=== PATIENT | male | born 1965 | race Caucasian/White ===

== ENCOUNTER 2018-12-05 13:01 | Emergency (ER) | payer OTHER ==
[2018-12-05 13:37] LABS: Absolute Lymphocytes (CBC) 2.3 K/uL (0.7-4.9); Basophils % 0.9 % (0-1.3); Lymphocytes % 32.4 % (15.3-44.8)
[2018-12-05] MEDS ORDERED: KETOROLAC 30 MG/ML INJ ONE (13:49)
[2018-12-05] MEDS ORDERED: ONDANSETRON 4 MG/2 ML VIAL ONE (13:49)
[2018-12-05] MEDS ORDERED: NA CHLORIDE 0.9% 1,000 ML ONE (13:49)
[2018-12-05 13:54] LABS: Albumin 3.9 g/dL (3.4-5.0); Bilirubin Direct 0.1 mg/dL (0-0.2); Bilirubin Total 0.5 mg/dL (0.2-1.0); Potassium 3.7 mmol/L (3.5-5.1); Protein, Total 7.5 g/dL (6.4-8.2)
[2018-12-05] MEDS ORDERED: MORPHINE 4 MG/ML SYR ONE (14:20)
--- NOTE | 2018-12-05 14:22 | RAD REPORT ---
EXAM DESCRIPTION: CT - Stone Protocol - 12/05/2018 1:56 pm CLINICAL HISTORY: Abdominal pain. Left flank pain COMPARISON: 2009 TECHNIQUE: Computed axial tomography of the abdomen pelvis was obtained without oral or IV contrast. Lack of IV and oral contrast limits evaluation of solid organs, bowel, and vessels. Coronal reformat luciana images were obtained and reviewed. All CT scans are performed using dose optimization technique as appropriate and may include automated exposure control or mA/KV adjustment according to patient size. FINDINGS: A renal calculus is not seen. An ureteral calculus is not noted. A bladder calculus is not present. The liver, spleen, pancreas and adrenals appear grossly normal There is no evidence of diverticulitis. Small inguinal hernias contain fat Small umbilical hernia contains fat IMPRESSION: Negative for a genitourinary calculus
--- NOTE | 2018-12-05 15:20 | ER ---
Nurse's Notes [facility] Name: Zuhair Fish Age: 53 yrs Sex: Male : 1965 Arrival Date: 12/05/2018 Time: 13:03 Bed 23 Private MD: Diagnosis: Low back pain Presentation: 12/05 13:04 Presenting complaint: Patient states: Friday he started having left flank pain on aj1 , the pain has gotten worse since then. Patient reports that he has had a kidney stone previously and it felt the same. Transition of care: patient was not received from another setting of care. Onset of symptoms was November 2018. Risk Assessment: Do you want to hurt yourself or someone else? Patient reports no desire to harm self or others. Initial Sepsis Screen: Does the patient meet any 2 criteria? No. Patient's initial sepsis screen is negative. Does the patient have a suspected source of infection? No. Patient's initial sepsis screen is negative. Care prior to arrival: None. 13:04 Method Of Arrival: Ambulatory aj1 13:04 Acuity: PAULETTE 3 aj1 Triage Assessment: 13:06 General: Appears uncomfortable, Behavior is calm, cooperative, appropriate for age. aj1 Pain: Complains of pain in posterior aspect of left lateral abdomen Pain currently is 5 out of 10 on a pain scale. at worst was 8 out of 10 on a pain scale. Neuro: Level of Consciousness is awake, alert, obeys commands, Oriented to person, place, time, situation. Cardiovascular: Patient's skin is warm and dry. Respiratory: Airway is patent Respiratory effort is even, unlabored, Respiratory pattern is regular, symmetrical. GI: Patient currently denies diarrhea, nausea, vomiting. : Denies burning with urination, urinary frequency. Historical: - Allergies: 13:06 No Known Allergies; aj1 - Home Meds: 13:06 None [Active]; aj1 - PMHx: 13:06 None; aj1 - PSHx: 13:06 None; aj1 - Immunization history:: Flu vaccine is up to date. - Social history:: Smoking status: Patient/guardian denies using tobacco. - Ebola Screening: : Patient denies travel to an Ebola-affected area in the 21 days before illness onset. Screenin:41 Abuse screen: Denies injuries from another. Nutritional screening: No deficits noted. la1 Tuberculosis screening: No symptoms or risk factors identified. Fall Risk None identified. Assessment: 13:42 General: Appears uncomfortable, Behavior is calm, cooperative. Pain: Complains of pain la1 in abdomen and posterior aspect of left lateral abdomen. Neuro: Level of Consciousness is awake, alert, obeys commands, Oriented to person, place, time, situation. Cardiovascular: Capillary refill < 3 seconds Patient's skin is warm and dry. Respiratory: Airway is patent Respiratory effort is even, unlabored, Respiratory pattern is regular, symmetrical. GI: Abdomen is round non-distended, Bowel sounds present X 4 quads. Abd is soft and non tender X 4 quads. : No deficits noted. No signs and/or symptoms were reported regarding the genitourinary system. Vital Signs: 13:06 BP 142 / 78; Pulse 84; Resp 18; Temp 98.0; Pulse Ox 98% on R/A; Weight 115.67 kg (R); aj1 Height 6 ft. 0 in. (182.88 cm) (R); Pain 5/10; 14:14 BP 131 / 74; Pulse 73; Resp 16; Pulse Ox 98% on R/A; la1 15:19 BP 118 / 74; Pulse 84; Resp 16; Pulse Ox 98% on R/A; la1 13:06 Body Mass Index 34.58 (115.67 kg, 182.88 cm) aj1 ED Course: 13:03 Patient arrived in ED. as 13:05 Triage completed. aj1 13:06 Arm band placed on Patient placed in an exam room. aj1 13:08 Stefano Mcnair PA is PHCP. cp 13:08 Stefano Sibley MD is Attending Physician. cp 13:41 Osei Garces, EVELIA is Primary Nurse. la1 13:41 No provider procedures requiring assistance completed. Inserted saline lock: 22 gauge la1 in right hand, using aseptic technique. 13:42 Bed in low position. Call light in reach. la1 13:56 CT completed. Patient tolerated procedure well. Patient moved back from CT. mw3 13:57 CT Stone Protocol In Process Unspecified. EDMS Administered Medications: 13:43 Drug: TORadol - Ketorolac 15 mg Route: IVP; Site: right hand; la1 15:20 Follow up: Response: No adverse reaction la1 13:43 Drug: Zofran 4 mg Route: IVP; Site: right hand; la1 15:20 Follow up: Response: No adverse reaction la1 13:43 Drug: NS 0.9% 1000 ml Route: IV; Rate: 1000 ml/hr; Site: right hand; la1 15:20 Follow up: IV Status: Completed infusion la1 14:04 Drug: morphine 4 mg Route: IVP; Site: right hand; la1 15:20 Follow up: Response: No adverse reaction; Pain is decreased la1 Outcome: 15:18 Discharge ordered by . cp 15:27 Patient left the ED. la1 15:28 Discharged to home ambulatory, via ambulance, via wheelchair. la1 15:28 Condition: stable 15:28 Discharge instructions given to patient, Instructed on discharge instructions, follow up and referral plans. medication usage, Demonstrated understanding of instructions, follow-up care, medications, Prescriptions given X 3. Signatures: Dispatcher [employer] EDMS Erin Singh RN RN [email or web address] Balbina Gardner Lee, RN RN la1 Stefano Mcnair PA PA Linad Murphy [email or web address]
--- NOTE | 2018-12-05 15:21 | EDPHYS ---
Physician Documentation [facility] Name: Zuhair Fish Age: 53 yrs Sex: Male : 1965 Arrival Date: 12/05/2018 Time: 13:03 Bed 23 Private MD: ED Physician Stefano Sibley HPI: 12/05 13:25 This 53 yrs old Male presents to ER via Ambulatory with complaints of cp Possible Kidney Stone. 13:25 The patient complains of pain in the left subscapular area and left mid back. cp 13:25 The pain does not radiate. Onset: The symptoms/episode began/occurred 2 day(s) ago, and cp became worse yesterday. 13:25 Associated signs and symptoms: Pertinent negatives: diarrhea, dysuria, fever, pain cp radiating to the lower extremities, vomiting, testicular pain. Historical: - Allergies: 13:06 No Known Allergies; aj1 - Home Meds: 13:06 None [Active]; aj1 - PMHx: 13:06 None; aj1 - PSHx: 13:06 None; aj1 - Immunization history:: Flu vaccine is up to date. - Social history:: Smoking status: Patient/guardian denies using tobacco. - Ebola Screening: : Patient denies travel to an Ebola-affected area in the 21 days before illness onset. ROS: 13:40 Constitutional: Negative for body aches, chills, fever, poor PO intake. cp 13:40 Eyes: Negative for injury, pain, redness, and discharge. cp 13:40 ENT: Negative for drainage from ear(s), ear pain, sore throat, difficulty swallowing, difficulty handling secretions. 13:40 Cardiovascular: Negative for chest pain, edema, palpitations. 13:40 Respiratory: Negative for cough, shortness of breath, wheezing. 13:40 Abdomen/GI: Negative for nausea, vomiting, and diarrhea, constipation, black/tarry stool, rectal bleeding. 13:40 Back: Positive for flank pain, on the left, Negative for injury or acute deformity. 13:40 : Negative for urinary symptoms, testicular pain 13:40 Skin: Negative for rash. 13:40 Neuro: Negative for altered mental status, headache, weakness. 13:40 All other systems are negative. Exam: 13:45 Constitutional: The patient appears in no acute distress, alert, awake, non-toxic, well cp developed, well nourished. 13:45 Head/Face: Normocephalic, atraumatic. cp 13:45 Eyes: Periorbital structures: appear normal, Conjunctiva: normal, no exudate, no injection, Sclera: no appreciated abnormality, Lids and lashes: appear normal, bilaterally. 13:45 ENT: External ear(s): are unremarkable, Nose: is normal, Mouth: Lips: moist, Oral mucosa: pink and intact, moist, Posterior pharynx: is normal, airway is patent, no erythema, no exudate. 13:45 Neck: ROM/movement: is normal, is supple, without pain, no range of motions limitations, no nuchal rigidity. 13:45 Chest/axilla: Inspection: normal, Palpation: is normal, no crepitus, no tenderness. 13:45 Cardiovascular: Rate: normal, Rhythm: regular. 13:45 Respiratory: the patient does not display signs of respiratory distress, Respirations: normal, no use of accessory muscles, no retractions, no splinting, no tachypnea, labored breathing, is not present. 13:45 Abdomen/GI: Inspection: abdomen appears normal, Palpation: abdomen is soft and non-tender, in all quadrants, rebound tenderness, is not appreciated, voluntary guarding, is not appreciated, involuntary guarding, is not appreciated. 13:45 Back: pain, that is moderate, of the left subscapular area and left mid back, ROM is painful, with rotation to the right, vertebral tenderness, is not appreciated. 13:45 Skin: no rash present. 13:45 Neuro: Motor: moves all fours, strength is normal, Gait: is steady, Deep tendon reflexes are 2+ (normal) in the right patellar, right Achilles, left patellar and left Achilles. Vital Signs: 13:06 BP 142 / 78; Pulse 84; Resp 18; Temp 98.0; Pulse Ox 98% on R/A; Weight 115.67 kg (R); aj1 Height 6 ft. 0 in. (182.88 cm) (R); Pain 5/10; 14:14 BP 131 / 74; Pulse 73; Resp 16; Pulse Ox 98% on R/A; la1 15:19 BP 118 / 74; Pulse 84; Resp 16; Pulse Ox 98% on R/A; la1 13:06 Body Mass Index 34.58 (115.67 kg, 182.88 cm) aj1 MDM: 13:10 Patient medically screened. cp 14:00 Differential diagnosis: nephrolithiasis, pyelonephritis, UTI, testicular torsion. 12/05 13:19 Order name: Basic Metabolic Panel; Complete Time: 14:00 12/05 14:00 Interpretation: Normal except: CL 108; GLUC 117; GFR 69. 12/05 13:19 Order name: CBC with Diff; Complete Time: 14:00 12/05 14:31 Interpretation: Normal except: RBC 4.30. 12/05 13:19 Order name: Creatinine for Radiology; Complete Time: 14:00 12/05 13:19 Order name: Hepatic Function; Complete Time: 14:00 12/05 13:19 Order name: Lipase; Complete Time: 14:00 12/05 15:03 Order name: Urine Dipstick--Ancillary (enter results) aa5 12/05 13:19 Order name: IV Saline Lock; Complete Time: 13:42 12/05 13:19 Order name: Labs collected and sent; Complete Time: 13:42 cp 12/05 13:19 Order name: CT Stone Protocol; Complete Time: 14:31 12/05 14:33 Interpretation: Report reviewed. 12/05 15:02 Order name: Urine Dipstick-Ancillary (obtain specimen); Complete Time: 15:04 aa5 Administered Medications: 13:43 Drug: TORadol - Ketorolac 15 mg Route: IVP; Site: right hand; la1 15:20 Follow up: Response: No adverse reaction la1 13:43 Drug: Zofran 4 mg Route: IVP; Site: right hand; la1 15:20 Follow up: Response: No adverse reaction la1 13:43 Drug: NS 0.9% 1000 ml Route: IV; Rate: 1000 ml/hr; Site: right hand; la1 15:20 Follow up: IV Status: Completed infusion la1 14:04 Drug: morphine 4 mg Route: IVP; Site: right hand; la1 15:20 Follow up: Response: No adverse reaction; Pain is decreased la1 Disposition: 12/06 11:21 Co-signature as Attending Physician, Stefano Sibley MD I agree with the assessment and neto plan of care. Disposition: 12/05/18 15:18 Discharged to Home. Impression: Low back pain. - Condition is Stable. - Discharge Instructions: Back Pain, Adult, Back Exercises. - Prescriptions for Cyclobenzaprine 10 mg Oral Tablet - take 1 tablet by ORAL route every 8 hours As needed; 20 tablet. Diclofenac Sodium 75 mg Oral Tablet, Delayed Release (E.C.) - take 1 tablet by ORAL route 2 times per day; 20 tablet. Tramadol 50 mg Oral Tablet - take 1 tablet by ORAL route every 8 hours as needed; 15 tablet. - Medication Reconciliation Form, Thank You Letter, Antibiotic Education, Prescription Opioid Use form. - Follow up: Private Physician; When: 2 - 3 days; Reason: Recheck today's complaints. - Problem is new. - Symptoms have improved. Signatures: Dispatcher [employer] EDErin Tejada RN RN aj1 Stefano Sibley MD MD cha Calderon, Audri, RN RN aa5 Osei Garces RN RN la1 Stefano Mcnair PA PA cp Corrections: (The following items were deleted from the chart) 12/05 15:27 15:18 12/05/2018 15:18 Discharged to Home. Impression: Low back pain. Condition is la1 Stable. Forms are Medication Reconciliation Form, Thank You Letter, Antibiotic Education, Prescription Opioid Use. Follow up: Private Physician; When: 2 - 3 days; Reason: Recheck today's complaints. Problem is new. Symptoms have improved. cp
[2018-12-05 18:12] LABS: Urine Blood NEGATIVE (NEG); Urine Glucose NEGATIVE (NEG); Urine Protein TRACE (NEG); Urine Specific Gravity >1.030 (1.005-1.030)
== END 2018-12-05 15:27 | disposition home or self-care (01) ==
LOC: ER 13:01
DX: M54.5 Low back pain (principal)
CPT/HCPCS: 36415; 74176; 76377; 80048; 80076; 81003; 83690; 85025; 96361; 96374; 96375; 99284; J2405; J7030